=== PATIENT | female | born 1970 | race Caucasian/White ===

== ENCOUNTER 2016-11-21 11:45 | Emergency (ER) | payer SELFPAY ==
[2016-11-21] MEDS ORDERED: SODIUM CHLORIDE 0.9% 1,000 ML ONE ×2 (13:01→13:33)
[2016-11-21] MEDS ORDERED: KETOROLAC TROMETHAMINE 30 MG/ML 1 ML VIAL ONE (13:01)
[2016-11-21] MEDS ORDERED: ONDANSETRON 4 MG/2ML 2 ML VIAL ONE (13:01)
[2016-11-21 13:21] LABS: ABSOLUTE NEUTROPHIL COUNT 6.6 K/mm3 (1.8-7.7); BASO # 0.2 K/mm3 (0.0-0.2); BASO % 1.7 % (0.2-1.0); EOS # 0.1 (0.0-0.5); EOS % 1.2 % (0.9-2.9); HEMATOCRIT 27.3 % (37.0-47.0); HEMOGLOBIN 7.1 gm/l (12.0-16.0); IMM NEUT% 0.2 % (0-1); LYMPH # 1.7 (1.0-4.8); LYMPH % 18.6 % (15-45); MEAN CELL VOLUME 63.8 fl (81.0-99.0); MEAN CORPUSCULAR HEMOGLOBIN 16.6 pg (27.0-31.0); MONO # 0.6 (0.0-0.8); MONO % 6.8 % (4-12); NEUT % 71.5 % (43-75); PLATELET COUNT 406 K/mm3 (130-400); RED CELL DISTRIBUTION WIDTH 21.7 % (11.5-14.5)
[2016-11-21 13:29] LABS: ALB/GLOB RATIO 1.4 (>1.0); CALCIUM 9.2 mg/dL (8.6-10.3)
[2016-11-21 13:48] LABS: ANISOCYTOSIS 2+; HYPOCHROMIA 2+; PLATELET ESTIMATE NORMAL (NORMAL); POIKILOCYTOSIS 1+; TARGET CELLS 1+
[2016-11-21 13:52] LABS: PH,URINE 6.5 (5.0-8.0); SPECIFIC GRAVITY 1.015 (1.001-1.030); URINE BILIRUBIN NEGATIVE (NEGATIVE); URINE BLOOD 2+ (NEGATIVE); URINE GLUCOSE (UA) NEGATIVE (NEGATIVE); URINE LEUKOCYTE ESTERASE NEGATIVE (NEGATIVE); URINE NITRITE NEGATIVE (NEGATIVE); URINE PROTEIN NEGATIVE (NEGATIVE); URINE UROBILINOGEN NORMAL (0-1 mg/dl)
[2016-11-21 13:53] LABS: URINE APPEARANCE CLEAR; URINE COLOR LIGHT YELLOW
[2016-11-21 14:18] LABS: URINE BACTERIA 1+; URINE RBC 0-1 /hpf
== END 2016-11-21 14:38 | disposition home or self-care (01) ==
LOC: ED 11:45
DX: D64.9 Anemia, unspecified (principal); E86.0 Dehydration; R53.1 Weakness; Z98.84 Bariatric surgery status
CPT/HCPCS: 85025; 87086; 80053; 81001; 96375; 99283 ×2; 96374; J1885; J2405; J7030 ×2

== ENCOUNTER 2016-12-01 20:09 | Inpatient (IN) | payer OTHER ==
[2016-12-01] MEDS ORDERED: ACETAMINOPHEN 500 MG TABLET ONE (21:36)
[2016-12-01 21:58] LABS: ABSOLUTE NEUTROPHIL COUNT 3.3 K/mm3 (1.8-7.7); BASO # 0.1 K/mm3 (0.0-0.2); BASO % 2.1 % (0.2-1.0); EOS # 0.1 (0.0-0.5); EOS % 1.9 % (0.9-2.9); HEMATOCRIT 26.3 % (37.0-47.0); HEMOGLOBIN 6.8 gm/l (12.0-16.0); IMM NEUT% 0.2 % (0-1); LYMPH # 0.6 (1.0-4.8); LYMPH % 11.8 % (15-45); MEAN CELL VOLUME 64.9 fl (81.0-99.0); MEAN CORPUSCULAR HEMOGLOBIN 16.8 pg (27.0-31.0); MEAN CORPUSCULAR HGB CONC 25.9 g/dl (33.0-37.0); MONO # 0.7 (0.0-0.8); MONO % 14.9 % (4-12); NEUT % 69.1 % (43-75); PLATELET COUNT 377 K/mm3 (130-400); RED CELL DISTRIBUTION WIDTH 21.6 % (11.5-14.5)
[2016-12-01 22:17] LABS: ALB/GLOB RATIO 1.5 (>1.0); CALCIUM 8.9 mg/dL (8.6-10.3)
[2016-12-01 22:30] LABS: TROPONIN I < 0.01 ng/ml (0.0-0.06)
[2016-12-01 22:33] LABS: CKMB ISOENZYME 0.8 ng/ml (0.6-6.3)
[2016-12-01 22:39] LABS: THYROID STIMULATING HORMONE 0.71 uIU/ml (0.34-5.60)
[2016-12-01 23:10] LABS: IRON 7 ug/dL (50-212); TOTAL IRON BINDING CAPACITY 487 ug/dL (261-478); TRANSFERRIN 348 mg/dL (203-362)
[2016-12-01 23:39] VITALS: BMI 24.0
[2016-12-01 23:54] LABS: ANISOCYTOSIS 2+; HYPOCHROMIA 3+; PLATELET ESTIMATE NORMAL (NORMAL)
[2016-12-01] MEDS ORDERED: SODIUM CHLORIDE 0.9% 500 ML ONE (23:58)
[2016-12-01] MEDS ORDERED: BLOOD Y PLUMSET W/CASSETTE ONE (23:58)
[2016-12-01] MEDS ORDERED: SODIUM CHLORIDE 0.9% FLUSH 10 ML ONE (23:59)
[2016-12-02] MEDS ORDERED: MENTHOL/CETYLPYRD 1 EACH LOZENGE PO PRN (00:06)
[2016-12-02] MEDS ORDERED: ACETAMINOPHEN 325 MG TABLET PO PRN (00:06)
[2016-12-02] MEDS ORDERED: BLISTEX LIPSTICK 1 EACH TP PRN (00:06)
[2016-12-02] MEDS ORDERED: SODIUM CHLORIDE 0.9% 100 ML IV PRN (00:06)
[2016-12-02] MEDS ORDERED: SODIUM CHLORIDE 0.9% 500 ML IV PRN (00:08)
[2016-12-02] MEDS ORDERED: POTASSIUM CHLORIDE 20 MEQ TAB.PRT.SR PO ONE (00:18)
[2016-12-02] MEDS ORDERED: HYDROCODONE/ACETAMINOPHEN 5/325MG TABLET PO ONE (02:37)
[2016-12-02 08:24] LABS: HEMATOCRIT 32.2 % (37.0-47.0)
[2016-12-02] MEDS: POLYETHYLENE GLYCOL 3350 17 G POWD.SUSP PO SCH (08:34)
--- NOTE | 2016-12-02 08:43 | HP ---
Katiuska Kinney [id number] : 1970 DATE OF ADMISSION: 12/01/2016 IDENTIFICATION: Ms. Kinney is a 46-year-old followed by Dr. Derik Leslie at [facility] in [place], [place]. CHIEF COMPLAINT: Weakness and headache. HISTORY OF PRESENT ILLNESS: Ms. Kinney has been feeling poorly for awhile. One week ago she was seen at the [facility] Emergency Room with weakness and headache. She was diagnosed with anemia with a hemoglobin of 7.1 at that time. She was put on oral iron supplement and told to follow up with her primary doctor. Today she returned with the same symptoms weakness and headache, but she is also having some faintness, dyspnea, and chest pressure. Her hemoglobin has decreased to 6.8. She has no signs of bleeding. Has not had any hematochezia or melana. She has average menstrual periods, last one November 24 lasting 4 to 5 days. She uses tampons and each one will last her about 4 hours. She was referred to the hospitalist service for observation and transfusion. REVIEW OF SYSTEMS: HEENT: Headache and lightheadedness. Respiratory: Dyspnea and dry cough. Cardiac: Chest pressure, no palpitations. Gastrointestinal: No nausea, vomiting, or dyspepsia. No diarrhea, constipation, hematochezia, or melana. Genitourinary: No symptoms. Last menstrual period as above. Musculoskeletal: No symptoms. Constitutional: She has not had any symptoms, but did have a temperature of 101.3 on presentation to the emergency department. PAST MEDICAL HISTORY: 1. History of obesity, status post Topher-en-Y procedure. 2. Anxiety. PAST SURGICAL HISTORY: 1. Topher-en-Y gastric bypass in July 2013. 2. Cholecystectomy laparoscopic February 2016. ALLERGIES: None known. MEDICATIONS: 1. Venlafaxine once daily, she is not certain about the dose. 2. Ferrous sulfate 300 mg started after her first emergency room visit a week ago. 3. MiraLax 17 gm by mouth daily as needed. 4. Colace 100 mg by mouth daily. HABITS: No current or past tobacco, alcohol, or drugs. SOCIAL HISTORY: Lives with her and daughters in [place]. She works for [employer]. FAMILY HISTORY: None significant. PHYSICAL EXAMINATION: GENERAL: This is a pleasant middle aged woman mild anxious. VITAL SIGNS: Temperature 98.9 degrees Fahrenheit, pulse 69, respiratory rate 16, blood pressure 126/84, oxygen saturation 98% on room air. HEENT: Pupils equal, round, and reactive. Extraocular muscles intact. Oropharynx is moist. Dentition good condition. CHEST: Clear to auscultation. HEART: Regular. No murmur. ABDOMEN: Soft, nontender, normal bowel tones. No organomegaly. EXTREMITIES: Good peripheral pulses. No cyanosis, clubbing, or edema. NEUROLOGIC: Alert and oriented. No focal deficits. LABORATORY: White blood cell count 4.8, hemoglobin and hematocrit 6.8 and 26.3, indices are microcytic, platelets 377. Lactate 1.3. Sodium 136, potassium 3.5, chloride 103, CO2 24, BUN 8, creatinine 0.6, glucose 108. Ferritin is low at 2.5. Liver enzymes are normal. Troponin I less than 0.01. DIAGNOSTICS: EKG normal sinus rhythm. Chest x-ray is normal. ASSESSMENT: Katiuska Kinney is a 46-year-old with symptomatic anemia, this appears to be chronic iron deficiency anemia likely related to her previous Topher-en-Y procedure. She has mild hypokalemia and history of anxiety. PLAN: 1. Refer to observation. 2. Transfuse 2 units of packed red blood cells. 3. Repeat hemoglobin and hematocrit two hours after transfusion and reassess for symptoms. If she is stable anticipate discharge and outpatient workup for the chronic anemia. 4. Full code status. 5. Venous thrombosis risk is low. She does not require a prophylaxis. 6. Oral potassium supplementation. JOB: [id number]
[2016-12-02] MEDS: DOCUSATE SODIUM 100 MG CAPSULE PO SCH (08:54)
[2016-12-02] MEDS ORDERED: FERROUS SULFATE (65 Fe) 325 MG TABLET PO SCH (09:00)
--- NOTE | 2016-12-02 09:35 | RAD ---
12/02/2016 9:29 AM CHEST - 2 VIEWS History: Cough for one day Comparison: None Findings: Two views of the chest are obtained. The lungs demonstrate subtle airspace disease in the retrocardiac distribution worrisome for small focus of pneumonia. Focal atelectasis is possible. Lungs are otherwise clear. The cardiomediastinal silhouette is unremarkable.. The osseous structures are intact.. IMPRESSION: Possible retrocardiac focus of pneumonia versus atelectasis. Follow-up as clinically warranted.
[2016-12-02 09:42] LABS: ABSOLUTE NEUTROPHIL COUNT 2.6 K/mm3 (1.8-7.7); BASO # 0.1 K/mm3 (0.0-0.2); BASO % 2.2 % (0.2-1.0); EOS % 0.7 % (0.9-2.9); HEMATOCRIT 32.7 % (37.0-47.0); IMM NEUT% 0.2 % (0-1); LYMPH % 24.6 % (15-45); MEAN CELL VOLUME 67.8 fl (81.0-99.0); MEAN CORPUSCULAR HEMOGLOBIN 18.7 pg (27.0-31.0); MEAN CORPUSCULAR HGB CONC 27.5 g/dl (33.0-37.0); MEAN PLATELET VOLUME 10.1 fl (7.4-10.4); MONO # 0.4 (0.0-0.8); MONO % 10.1 % (4-12); NEUT % 62.2 % (43-75); PLATELET COUNT 305 K/mm3 (130-400); RED CELL DISTRIBUTION WIDTH 23.8 % (11.5-14.5)
--- NOTE | 2016-12-02 09:44 | PDOC43 ---
- Subjective Chief Complaint: weakness, dyspnea, chest pressure Feels worse today with headache and increased cough. - Objective Vital Signs Temperature 98.3 F 12/02/16 07:44 Pulse Rate 57 12/02/16 07:44 Respiratory Rate 16 12/02/16 07:44 Blood Pressure 140/80 12/02/16 07:44 O2 Saturation by Pulse Oximetry 100 12/02/16 07:44 Oxygen Delivery Method Room Air Oxygen Flow Rate 0 Intake and Output 12/01/16 12/02/16 12/03/16 06:59 06:59 06:59 Intake Total 2350 Output Total 675 Balance 1675 General: Alert, Oriented x3, Cooperative, Moderate Distress HEENT: Mucous membr. moist/pink Lungs: Clear to Auscultation Bilaterally Cardiovascular: Regular Rate and Rhythm Abdomen: Soft, Tenderness (mild in RUQ), Normal Bowel Sounds, No Masses Extremities: Normal Pulses, No Edema Skin: Normal Color Neurological: Normal Speech Psych/Mental Status: Anxious Laboratory 12/02/16 08:10 Current Medications: Current meds reviewed in EMR. - Problems: Assessment/Plan (1) Anemia Qualifiers: Anemia type: iron deficiency Status: ChronicAssessment/Plan: Improved post transfusion. Severe Iron deficiency presumed due to mal- absorption from Topher-en-Y. Venofer today and out patient f/u. (2) Anxiety Status: ChronicAssessment/Plan: resume venlafixine (3) Cough Status: AcuteAssessment/Plan: check CXR and CBC. (4) Headache Qualifiers: Headache type: tension-type Headache chronicity pattern: acute headache Status: AcuteAssessment/Plan: inadequate response to hydrocodone, trial of oxycodone. VTE Prophylaxis: not indicated Disposition: still likely to discharge today.
[2016-12-02] MEDS: OXYCODONE HCL 5 MG TABLET PO PRN ×4 (09:52→21:49)
--- NOTE | 2016-12-02 09:56 | RAD ---
12/02/2016 9:52 AM CHEST - 2 VIEWS History: Chest pain and cough for a few days. Comparison: Yesterday Findings: Two views of the chest are obtained. The lungs demonstrate the area of possible retrocardiac opacity to of resolved. Lungs are otherwise clear. The cardiomediastinal silhouette is unremarkable.. The osseous structures are intact.. EKG leads overlie the chest. IMPRESSION: No acute intrathoracic process.
[2016-12-02] MEDS ORDERED: IRON SUCROSE COMPLEX 200 MG in SODIUM CHLORIDE 0.9% 100 ML IV ONE (10:00)
[2016-12-02] MEDS ORDERED: PUMP TUBING ONE (10:05)
[2016-12-02] MEDS ORDERED: ONDANSETRON 4 MG/2ML 2 ML VIAL IV PRN (11:41)
[2016-12-02] MEDS ORDERED: ONDANSETRON 4 MG ODT TAB PO PRN (11:41)
[2016-12-02 12:36] LABS: HEMATOCRIT 31.8 % (37.0-47.0); HEMOGLOBIN 8.9 gm/l (12.0-16.0)
[2016-12-02] MEDS ORDERED: PROMETHAZINE HCL 12.5 MG in SODIUM CHLORIDE 0.9% 50 ML IV PRN (12:39)
[2016-12-02 13:01] LABS: ALB/GLOB RATIO 1.5 (>1.0); ALBUMIN 3.8 gm/dL (3.5-5.7); CALCIUM 8.8 mg/dL (8.6-10.3)
--- NOTE | 2016-12-02 13:26 | PDOC36 ---
Provider Note Subject: patient complains of headache and nausea refractory to Zofran. Labs show risong LFTs. Patient denies abd pain. Note: Added acute hepatitis serologies to labs, will try IV promethazine. Anticipate keeping overnight under observation pending control of symptoms.
[2016-12-03] MEDS: OXYCODONE HCL 5 MG TABLET PO PRN ×6 (01:31→19:35)
[2016-12-03 05:42] LABS: ABSOLUTE NEUTROPHIL COUNT 4.7 K/mm3 (1.8-7.7); BASO % 0.6 % (0.2-1.0); HEMATOCRIT 34.5 % (37.0-47.0); HEMOGLOBIN 9.8 gm/l (12.0-16.0); IMM NEUT% 0.3 % (0-1); LYMPH # 1.2 (1.0-4.8); LYMPH % 18.4 % (15-45); MEAN CELL VOLUME 66.7 fl (81.0-99.0); MEAN CORPUSCULAR HGB CONC 28.4 g/dl (33.0-37.0); MEAN PLATELET VOLUME 10.1 fl (7.4-10.4); MONO # 0.5 (0.0-0.8); MONO % 7.7 % (4-12); PLATELET COUNT 322 K/mm3 (130-400); RED CELL DISTRIBUTION WIDTH 23.8 % (11.5-14.5)
[2016-12-03 06:08] LABS: ALB/GLOB RATIO 1.4 (>1.0); ALBUMIN 3.8 gm/dL (3.5-5.7); CALCIUM 9.2 mg/dL (8.6-10.3)
[2016-12-03] MEDS: DOCUSATE SODIUM 100 MG CAPSULE PO SCH (09:51)
[2016-12-03] MEDS: POLYETHYLENE GLYCOL 3350 17 G POWD.SUSP PO SCH (09:52)
[2016-12-03] MEDS ORDERED: ZOLPIDEM TARTRATE 5 MG TABLET PO PRN (11:49)
--- NOTE | 2016-12-03 12:01 | PDOC43 ---
- Subjective Chief Complaint: Tired, new nonproductive cough, fever, headache Subjective: Reports Pain Tolerable, Reports Tolerating Diet Well, Reports Cough , Reports Fever, Denies Bowel Movement, Denies Chest Pain, Denies Nausea, Denies Vomiting - Objective Vital Signs Temperature 99.4 F 12/03/16 09:52 Pulse Rate 77 12/03/16 09:52 Respiratory Rate 16 12/03/16 09:52 Blood Pressure 125/82 12/03/16 09:52 O2 Saturation by Pulse Oximetry 96 12/03/16 09:52 Oxygen Delivery Method Nasal Cannula Oxygen Flow Rate 2 Intake and Output 12/01/16 12/02/16 12/03/16 23:59 23:59 23:59 Intake Total 2719 150 Output Total 1125 1250 Balance 1594 -1100 General: Alert, Oriented x3, Cooperative, Other (fatigued) HEENT: Atraumatic, PERRLA, EOMI, Mucous membr. moist/pink Lungs: Clear to Auscultation Bilaterally, Normal Air Movement Cardiovascular: Regular Rate and Rhythm Abdomen: Soft Extremities: Normal Pulses, No Edema Skin: Warm, Dry, Intact, No Rash Psych/Mental Status: Flat Affect Laboratory 12/03/16 05:15 12/03/16 05:15 12/03/16 12/02/16 05:15 12:25 MCV 66.7 L MCH 19.0 L MCHC 28.4 L RDW 23.8 H BUN 4 L 5 L Estimated GFR 108 H 133 H Total Bilirubin 1.1 H AST 228 H 569 H ALT 206 H 181 H Alkaline Phosphatase 230 H 211 H Current Medications: Current meds reviewed in EMR. - Problems: Assessment/Plan (1) Viral syndrome Status: AcuteAssessment/Plan: Fever, transaminitis, cough, headache, fatigue consistent with developing viral illness. Supportive care with cough medication, pain relief, rest, diet as tolerated and PO fluids (2) Anemia, iron deficiency Qualifiers: Iron deficiency anemia type: other iron deficiency Qualifier Code: ( D50.8) Other iron deficiency anemias Status: ChronicAssessment/Plan: Status post 2U PRBC and 1 Dose IV Venofer. Will need to resume oral iron on discharge as patient had been noncompliant. Will need outpatient reassessment and endoscopy assessments after discharge. Given her gastric bypass I will obtain B12/folate levels as these could coexist and impeded adequate production. HPI suggests NSAID use back in May 2016 for dental pain. This may have been the inciting event. NO hemoccult has been done yet as she has not had a BM since admission. (3) Transaminitis Status: AcuteAssessment/Plan: suspect viral syndrome, hepatitis testing pending, repeat LFT's in am Had ingested 6tabs of Tylenol within 24hrs prior to admit due to OROURKE. (4) Cough Status: AcuteAssessment/Plan: CXR negative. Prn cough medication (5) Headache Qualifiers: Headache type: tension-type Headache chronicity pattern: acute headache Status: AcuteAssessment/Plan: Has hx of Migraines 1/month, relieved with tylenol. This is likely part of viral syndrome now. Supportive. Prn Oxy (6) History of Topher-en-Y gastric bypass Status: Chronic (7) Insomnia Status: AcuteAssessment/Plan: Will make Ambien available VTE Prophylaxis: SCD's. If not discharged tomorrow and CBC stable with negative hemoccult, will add Lovenox Disposition: Will likely discharge in 1-2days
[2016-12-03] MEDS ORDERED: GUAIFENESIN-DEXTROMETHORPHAN 100/10 MG/5 ML (120 ML BOT) PO PRN (12:02)
[2016-12-04 00:42] LABS: HEP B CORE AB, IGM Non React (Non React); HEPATITIS B SURFACE AG Non React (Non React); HEPATITIS C ANTIBODY Non React (Non React)
[2016-12-04 06:47] LABS: ABSOLUTE NEUTROPHIL COUNT 4.7 K/mm3 (1.8-7.7); BASO # 0.1 K/mm3 (0.0-0.2); BASO % 0.8 % (0.2-1.0); EOS # 0.1 (0.0-0.5); EOS % 0.9 % (0.9-2.9); HEMATOCRIT 32.7 % (37.0-47.0); HEMOGLOBIN 9.4 gm/l (12.0-16.0); IMM NEUT% 0.3 % (0-1); LYMPH % 15.1 % (15-45); MEAN CELL VOLUME 65.5 fl (81.0-99.0); MEAN CORPUSCULAR HEMOGLOBIN 18.8 pg (27.0-31.0); MEAN CORPUSCULAR HGB CONC 28.7 g/dl (33.0-37.0); MONO # 0.6 (0.0-0.8); NEUT % 73.9 % (43-75); PLATELET COUNT 312 K/mm3 (130-400); RED CELL DISTRIBUTION WIDTH 25.1 % (11.5-14.5)
[2016-12-04 07:00] LABS: ALB/GLOB RATIO 1.4 (>1.0); ALBUMIN 3.5 gm/dL (3.5-5.7); CALCIUM 8.9 mg/dL (8.6-10.3)
[2016-12-04 08:03] VITALS: BP 116/74
[2016-12-04] MEDS: DOCUSATE SODIUM 100 MG CAPSULE PO SCH (08:30)
[2016-12-04] MEDS: POLYETHYLENE GLYCOL 3350 17 G POWD.SUSP PO SCH (08:30)
--- NOTE | 2016-12-04 09:56 | PDOC5 ---
ADMIT DATE: 12/02/16 DISCHARGE DATE: 12/04/16 ADMISSION DIAGNOSES: Symptomatic Anemia PROCEDURES PERFORMED THIS HOSPITALIZATION: None CONSULTATIONS: None HOSPITAL COURSE: This is a 46 year old admitted with symptomatic, iron deficiency anemia without evidence of acute blood loss. Please see problem based list for details of interventions, plan and discharge plans. - Exam Vital Signs Temperature 98.9 F 12/04/16 08:00 Pulse Rate 74 12/04/16 08:00 Respiratory Rate 16 12/04/16 08:00 Blood Pressure 116/74 12/04/16 08:00 O2 Saturation by Pulse Oximetry 96 12/04/16 08:00 Oxygen Delivery Method Room Air Oxygen Flow Rate 0 General: Alert, Oriented x3, Cooperative, No Acute Distress HEENT: Atraumatic, PERRLA, EOMI, Mucous membr. moist/pink Lungs: Clear to Auscultation Bilaterally, Other (nonproductive cough) Cardiovascular: Regular Rate and Rhythm, Normal S1, Normal S2 Abdomen: Soft, Normal Bowel Sounds, Non-Distended, No Tenderness Rectal Exam: No Guaiac Negative Extremities: Full ROM, Normal Pulses, No Edema Skin: Normal Color, Warm, Dry, Intact Neurological: Normal Speech Psych/Mental Status: Normal Affect, Normal Mood - Results Laboratory 12/04/16 05:30 12/04/16 05:30 12/04/16 05:30 MCV 65.5 L MCH 18.8 L MCHC 28.7 L RDW 25.1 H Estimated GFR 173 H AST 60 H ALT 123 H Alkaline Phosphatase 196 H Total Protein 6.0 L - Problems:Assessment/Plan (1) Viral syndrome Status: AcuteAssessment/Plan: Fever, transaminitis, cough, headache, fatigue consistent with developing viral illness. Gradual improvement with suupportive care with cough medication, pain relief, rest, diet as tolerated and PO fluids. Tolerating PO liquids and food, cough suppression, rest and OTC tylenol. Avoid NSAIDS. Has f/u PCP appt this coming week and a work excuse until that time. LFT's resolving appropriately with no abdominal symptoms other than some loose stool this am but no diarrhea. (2) Anemia, iron deficiency Qualifiers: Iron deficiency anemia type: other iron deficiency Qualifier Code: ( D50.8) Other iron deficiency anemias Status: ChronicAssessment/Plan: Status post 2U PRBC and 1 Dose IV Venofer during inpatient stay. Resuming oral iron on discharge as patient had been noncompliant prior to admit due to stomach upset. Will need outpatient reassessment and consideration of upper/ lower endoscopy assessments after discharge. Given her gastric bypass I will obtained B12 levels as these could coexist and impeded adequate production, pending at discharge but confirmed with patient she takes B vitamin routinely as an outpatient. HPI suggested regular NSAID use back in May 2016 for dental pain. This may have been the inciting event. Hemoccult done on loose stool this am was reported negative. (3) Transaminitis Status: AcuteAssessment/Plan: Secondary to viral syndrome, acute hepatitis testing negative, LFT's resolving towards normal. Consider rechecking LFT at outpatient PCP f/u. Had ingested 6tabs of Tylenol within 24hrs prior to admit due to OROURKE but no indication of overdosage. (4) Cough Status: AcuteAssessment/Plan: CXR negative for air space disease. Continue OTC Prn cough medications. (5) Headache Qualifiers: Headache type: tension-type Headache chronicity pattern: acute headache Status: AcuteAssessment/Plan: Has hx of Migraines on average 1/month, relieved with tylenol. This is likely part of viral syndrome now. Supportive care with OTC Tylenol, rest. (6) History of Topher-en-Y gastric bypass Status: Chronic (7) Insomnia Status: AcuteAssessment/Plan: Related to inpatient stay. No need for outpatient plan. - Disposition: Disposition: Discharge to home with self care. Has PCP f/u for Tuesday this coming week. Has valid work excuse through Tuesday and will be reassessed at that time. - Discharge Plan Follow-Up: Derik Leslie MD [Primary Care Provider] - 12/10/16 1:45 pm Condition: Good Disposition: Home
== END 2016-12-04 10:20 | disposition home or self-care (01) | DRG 812 ==
LOC: ED 20:09 → MS 22:53 → OBSVTOIN 12-02 00:06
PROVIDERS: ADMIT Family Medicine; ATTEND Family Medicine
PROC: 30233N1 Transfusion of Nonautologous Red Blood Cells into Peripheral Vein, Percutaneous Approach (ICD-10-PCS; principal; 2016-12-02)
DX: D50.9 Iron deficiency anemia, unspecified (principal); Z98.84 Bariatric surgery status; F41.9 Anxiety disorder, unspecified; R05 Cough; B34.9 Viral infection, unspecified; R74.0 Nonspecific elevation of levels of transaminase and lactic acid dehydrogenase [LDH]; G47.00 Insomnia, unspecified